=== PATIENT | female | born 1960 | race Caucasian/White ===

== ENCOUNTER 2019-02-15 15:54 | Emergency (ER) | payer OTHER ==
[~2019-02-15] VITALS: Ht 165.1 cm; Wt 70.8 kg
--- NOTE | 2019-02-15 15:54 | NUR ---
PT BIB [facility] WITH A C/O ABD PAIN (LLQ). PT HAS A HX OF COLITIS AND IS ALSO C/O LLQ HARDNESS WITH PAIN AND DIARRHEA. PT STATED THAT SHE IS ALLERGIC TO ALL ANTIBIOTICS AND DOES NOT WANT TO HAVE BLOOD DRAWN.
[2019-02-15] MEDS ORDERED: LEVO150T PO (16:20)
[2019-02-15] MEDS ORDERED: MORPHINE SULFATE INJ 2 MG/ML DISP.SYRIN IV ONE ×2 (16:30→22:30)
[2019-02-15] MEDS ORDERED: IV NS 0.9% 1,000 ML BAG IV ONE ×2 (16:30→18:00)
[2019-02-15] MEDS ORDERED: ONDANSETRON HCL/PF 4 MG/2 ML VIAL IVP ONE ×3 (16:30→22:30)
[2019-02-15] MEDS ORDERED: KETOROLAC TROMETHAMINE INJ 30 MG/ML VIAL IV ONE (16:30)
--- NOTE | 2019-02-15 16:32 | NUR ---
CESAR RN IS AT THE BEDSIDE STARTING AN IV AND DRAWING BLOOD. YUN IMPREGNATION OPERATOR IS AT THE BEDSIDE.
[2019-02-15] MEDS ORDERED: ONDANSETRON HCL/PF 4 MG/2 ML VIAL ONE ×3 (16:41→22:02)
[2019-02-15] MEDS ORDERED: KETOROLAC TROMETHAMINE 15 MG/ML VIAL ONE (16:41)
[2019-02-15] MEDS ORDERED: MORPHINE SULFATE INJ 4 MG/ML DISP.SYRIN ONE ×2 (16:42→22:02)
[2019-02-15 16:43] LABS: BASOPHILS % (AUTO) 0.5 % (0.0-2.0); EOSINOPHILS % (AUTO) 0.9 % (0.0-6.0); HEMATOCRIT 25 % (33-45); HEMOGLOBIN 7.4 g/dL (11.5-14.8); LYMPHOCYTES # (AUTO) 1.2 /CMM (0.8-4.8); LYMPHOCYTES % (AUTO) 13.2 % (20.0-44.0); MEAN CORPUSCULAR HGB CONC 30 g/dl (31.0-36.0); MEAN CORPUSCULAR VOLUME 61 fL (82-100); MONOCYTES # (AUTO) 0.6 /CMM (0.1-1.30); MONOCYTES % (AUTO) 6.9 % (2.0-12.0); NEUTROPHILS # (AUTO) 7.2 /CMM (1.8-8.9); NEUTROPHILS % (AUTO) 78.5 % (43.0-81.0); PLATELET COUNT (AUTO) 775 /CMM (150-450); RED BLOOD CELL COUNT(AUTO) 4.06 MIL/uL (4.0-5.2); WHITE BLOOD COUNT (AUTO) 9.2 K/uL (4.3-11.0)
[2019-02-15 16:53] LABS: CALCIUM, SERUM 8.8 mg/dL (8.5-10.1); CREATININE 0.8 mg/dL (0.6-1.3); POTASSIUM 4.5 mmol/L (3.5-5.1)
--- NOTE | 2019-02-15 16:54 | NUR ---
PT LEFT FOR RADIOLOGY VIA [facility].
[2019-02-15 16:59] LABS: ALBUMIN 2.1 g/dL (3.4-5.0); BILIRUBIN,TOTAL 0.3 mg/dL (0.2-1.0); TOTAL PROTEIN, SERUM 8.1 g/dL (6.4-8.2)
--- NOTE | 2019-02-15 17:21 | NUR ---
PT STATED THAT SHE HAD TO USE THE BATHROOM. PT AMBULATED TO THE BATHROOM WITH A SLOW STEADY GAIT. PT WILL TRY AND GIVE A URINE SAMPLE.
[2019-02-15 17:39] LABS: APPEARANCE,URINE Clear (CLEAR); BILIRUBIN,URINE SMALL (NEGATIVE); BLOOD, URINE Trace-lysed Ery/uL (NEGATIVE); COLOR,URINE Yellow (YELLOW); KETONES,URINE Trace (NEGATIVE); LEUKOCYTE ESTERASE ,URINE Negative (NEGATIVE); NITRITE, URINE Negative (NEGATIVE); PROTEIN,URINE 30 mg/dl (NEGATIVE); UGLUCOSE Negative (NEGATIVE); UROBILINOGEN,URINE 0.2 EU/dL (0.2)
[2019-02-15 17:40] LABS: EOSINOPHILS % (MANUAL) 1 % (0-4); LYMPHOCYTES % (MANUAL) 11 % (16-48); MONOCYTES % (MANUAL) 6 % (0-11.0); NEUTROPHILS % (MANUAL) 82 (42-76)
[2019-02-15 17:50] LABS: BACTERIA,URINE Few /HPF (None Seen); MUCUS,URINE Many /LPF (None Seen); SQUAMOUS EPITHELIAL CELL,UR Few /HPF (None Seen)
[2019-02-15] MEDS ORDERED: PANTOPRAZOLE 40 MG VIAL IV ONE (18:00)
[2019-02-15] MEDS ORDERED: PANTOPRAZOLE 40 MG VIAL ONE (18:14)
--- NOTE | 2019-02-15 19:15 | NUR ---
REPORT GIVEN TO ED, SMALL BUSINESS CONSULTANT FOR [facility].
--- NOTE | 2019-02-15 19:16 | NUR ---
ASSUMED CARE. NV RESTING QUIETLY, NO ACUTE DISTRESS NOTED, RESP EVEN AND UNLABORED. PAIN WITHIN ACCEPTABLE LEVEL TO PT 10/08. PT AWARE OF HOSPITAL ADMISSION. WILL CONTINUE TO MONITOR PT CLOSELY.
--- NOTE | 2019-02-15 20:08 | NUR ---
SPOKE TO YULIET SAHU. WILL FAX INFO REQUESTED AT .
--- NOTE | 2019-02-15 21:50 | NUR ---
LUIS ALBERTO RETORT OPERATOR NUMBER:
--- NOTE | 2019-02-15 22:04 | NUR ---
PT C/O ABDOMINAL PAIN 04/07. ER MD MADE AWARE WITH ORDERS RECEIVED. WILL CARRY OUT ORDERS.
--- NOTE | 2019-02-15 22:34 | NUR ---
SPOKE TO SERVICES CLERK LUIS ALBERTO STATES WILL CALL BACK WITH BED ASSIGNMENT UPDATE.
--- NOTE | 2019-02-15 22:51 | NUR ---
NUMBER FOR REPORT: [id number]. [phone]
--- NOTE | 2019-02-15 23:31 | NUR ---
PT AMBULATORY TO THE BATHROON WITH STEADY GEITN NOTED. PAIN WIHTIN ACCEPTABLE LEVEL TO PT 210
--- NOTE | 2019-02-15 23:42 | NUR ---
SARAH CALLED TO [facility].
--- NOTE | 2019-02-16 00:28 | NUR ---
TRANSPORT AT BEDSIDE REPORT GIVEN TO EMT.
[2019-02-16 00:29] VITALS: BP 98/58
== END 2019-02-16 00:31 | disposition short-term general hospital (02) ==
LOC: ER 16:02
DX: K52.9 Noninfective gastroenteritis and colitis, unspecified (principal); R10.12 Left upper quadrant pain; D64.9 Anemia, unspecified
CPT/HCPCS: 36415; 71045; 74176; 80048; 80076; 81001; 83690; 85025; 86850; 93005; 96361; 96374; 96375; 96376; 99285; C9113; J1885; J2270 ×2; J2405 ×3; J7030 ×3; 81000-TC